=== PATIENT | female | born 1975 | race Caucasian/White ===

== ENCOUNTER 2019-12-18 11:36 | Outpatient (CLI) | payer OTHER | END 2019-12-18 11:54 | disposition home or self-care (01) | LOC: SONOGRAMA 11:36 | DX: D25.9 Leiomyoma of uterus, unspecified (principal); D25.0 Submucous leiomyoma of uterus ==

== ENCOUNTER 2020-12-21 05:35 | Day surgery (SDC) | payer OTHER | END 2020-12-21 15:40 | disposition home or self-care (01) | LOC: CIR.AMB 05:35 | PROVIDERS: ATTEND Obstetrics & Gynecology | DX: N84.0 Polyp of corpus uteri (principal); Z20.822 Contact with and (suspected) exposure to COVID-19 ==